=== PATIENT | female | born 1965 | race Caucasian/White ===

== ENCOUNTER 2018-01-06 14:19 | Outpatient (CLI) | payer OTHER ==
[~2018-01-06 14:19] MED LIST: Gadobenate Dimeglumine 529 MG/1 ML (20ML VIAL) ONE
--- NOTE | 2018-01-06 16:02 | MRI ---
MRI BRAIN WITH AND WITHOUT CONTRAST: Date: 01/06/18 INDICATION: Multiple sclerosis. No prior comparison. FINDINGS: There is multifocal abnormal white matter signal alteration which is primarily centered with a callos al/pericallosal and periventricular distribution. There is no territorial infarction, mass effect, or midline shift. Ventricular system is normal in size. No pathologic enhancing intra-axial lesions are present. There is extra-axial rounded enhancement, just anterior to the corpus callosum, measuring a pproximately 1.0 cm. Finding is located at midline, demonstrates flow-related signal by T2 imaging an d favors an aneurysm arising from the anterior cerebral circulation. There is a T2 hyperintensity at the posterior aspect of the right lentiform nucleus which may be related to a dilated perivascular sp suma. There is a focal, oval-shaped signal abnormality of the right cerebellar hemisphere, likely a de myelinating plaque in light of the concomitant findings. 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 IMPRESSION: 1. MR findings indicative of a prominent degree of demyelination related to patient's history of mul tiple sclerosis. There is no enhancement to confirm active demyelination. 2. 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 Dedic ated MRA tribe of [place] or CTA tribe of [place] exam is recommended to further assess. POS: [facility]
== END 2018-01-06 14:20 | disposition home or self-care (01) ==
LOC: BICMRI 14:19
PROVIDERS: ATTEND Psychiatry & Neurology Neurology
DX: G35 Multiple sclerosis (principal)
CPT/HCPCS: 70553; A9579

== ENCOUNTER 2018-03-02 08:49 | Outpatient (CLI) | payer OTHER ==
--- NOTE | 2018-03-02 11:15 | CT ---
CT ANGIOGRAM HEAD: HISTORY: Evaluate for possible anterior cerebral artery aneurysm. COMPARISON: None. CORRELATION: Brain MRI from 01/06/2018. FINDINGS: Noncontrast head CT demonstrates hyperdensity in the expected region of the previously suggested aneu rysm. No parenchymal hemorrhage. No extraaxial hematoma. No midline shift. Basilar cisterns are p atent. Brain volume is age appropriate. No evidence of hydrocephalus. Minimal chronic small vessel ischemic change of the white matter. Stable choroid plexus cyst in the right cerebrum. The calvari um is intact. Adequate aeration of the sinuses and mastoid air cells. On the post contrast images, there is no pathologic enhancement of the brain parenchyma. On CT angiogram, there is symmetric enhancement of the luminal diameter of the distal cervical and in tracranial internal carotid arteries. Anterior circulation shows symmetric enhancement and luminal diameter of the M1 segments. Both A1 se gments are patent. The left A1 segment is larger than the contralateral side. The diminutive right A1 segment is presumed to be due to a congenital variant. There is a solitary A2 segment (azygous va riant). This solitary A2 segment corresponds to the colossal marginal artery. At the mid to distal portion of this artery, there is evidence of a bifurcation, with two separate arteries. At the level of the bifurcation, there is a saccular aneurysm, measuring 7 cm anteroposterior x 1 cm mediolateral x 0.9 cm craniocaudal. There appears to be a single supplying vessel (the colossal marginal artery) . Additional aneurysms in the anterior circulation are not appreciated. The proximal MCA branches a re symmetric. Posterior circulation shows both intracranial vertebral arteries are patent and symmetric. Both PICA artery origins are unremarkable. Both vertebral arteries supply a normal caliber basilar artery. T he left and right P1 segments have symmetric enhancement and luminal diameter. 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 Beyond this aneurysm, there appear to be two separate arteries that bifurcate and supply the distal aspect of the colossal marginal artery. Conventional angiography may be beneficial, to consider possible treatment of the aneurysm. POS: [facility]
== END 2018-03-02 08:50 | disposition home or self-care (01) ==
LOC: TBSIIMAG 08:49
PROVIDERS: ATTEND Neurological Surgery
DX: I67.1 Cerebral aneurysm, nonruptured (principal)
CPT/HCPCS: 70496

== ENCOUNTER → 2018-04-19 | Day surgery (SDC) | payer OTHER ==
[2018-04-17 11:32] VITALS: BMI 29.6
[~2018-04-19] MED LIST changes: -Gadobenate Dimeglumine 529 MG/1 ML (20ML VIAL) ONE; +Heparin 10,000 UNITS/1 ML VIAL ONE; +Iopamidol 370 76% 100 ML VIAL ONE
--- NOTE | 2018-04-19 09:54 | CCL ---
RADIOLOGY PROCEDURE NOTE: Date: 04/19/18 SURGEON: Karlos Jarvis M.D. ROUGHER OPERATOR: None. INDICATION: Incidentally discovered aneurysm. DIAGNOSIS: Anterior communicating artery aneurysm. PROCEDURE: Diagnostic cerebral angiography. ANESTHESIA: Local. TECHNIQUE: The patient was brought into the angiogram suite and placed on the table in the supine position. Both groins were prepped and draped in the usual sterile fashion. Following an appropriate operative paus e, 1% lidocaine was injected into the right groin area for the purposes of local anesthesia. A 5 Fren ch Micropuncture set was then used to gain access to the right common femoral artery. After placing a 5 Croatian sheath, a diagnostic catheter was placed in the aortic arch, where the left internal caroti d artery was selectively catheterized. Several AP and lateral angiograms were performed. Catheter was then removed. Hemostasis was maintained throughout. Wound was then closed with hemostasis. There wer e no known procedural complications. FINDINGS/IMPRESSION: Angiography reveals the presence of anterior communicating artery aneurysm that measures approximatel y 10.0 x 7.0 x 7.0 mm in dimension. There is a single A1 segment emanating from the left side. There appears to be an atretic A1 segment from the right. Both A2 segments emanate from the base of the ane urysm. Effectively, it is a broad based aneurysm which I do not believe is amenable to safe coil embo lization. Plan will be to follow-up in the outpatient clinic for further discussion regarding treatme nt options.
== END ==
LOC: CCL 06:10
PROVIDERS: ATTEND Neurological Surgery
PROC: 03H Upper Arteries, Insertion (ICD-10-PCS; principal; 2018-04-19)
DX: I67.1 Cerebral aneurysm, nonruptured (principal); Z79.899 Other long term (current) drug therapy; Z88.0 Allergy status to penicillin
CPT/HCPCS: 36224; J1644; Q9967

== ENCOUNTER 2018-09-26 06:02 | Inpatient (IN) | payer OTHER ==
--- NOTE | 2018-09-22 08:31 | HP ---
HISTORY OF PRESENT ILLNESS: Ms. Lisa was referred by Dr. Jarvis for unruptured aneurysm. She is a 53-year-old female and has had a diagnosis of multiple sclerosis since age 25. She is not currently on any biologicals, but does take a month of prednisone. She has not had a recent flare. During a screening MRI, was seen in the interhemispheric fissure that looks like an aneurysm, indeed conventional angiograph revealed a single A2 segment and A2-3 bifurcation 1 cm plus aneurysm and a dominant left A1. She had no personal nor family history of aneurysmal SAH. REVIEW OF SYSTEMS: A 10-point review of systems have been completed and is negative other than stated in the above HPI. PAST MEDICAL HISTORY: Multiple sclerosis, chronic back pain, hypothyroid, hypertension, and elevated cholesterol. ALLERGIES: PENICILLIN. PAST SURGICAL HISTORY: Hysterectomy, one ovary remaining, jaw surgery, and multiple tubal ligation. FAMILY HISTORY: Father is alive. Mother has . Siblings are alive, one healthy daughter. SOCIAL HISTORY: The patient is a former smoker, quit in 1983. Denies alcohol or drug use. She is abstinent now, has been previously sexually active. Living situation was with near aging parents to help care for them. The patient is 100% disabled through the [facility]. She is , has one child and drinks caffeine daily. PHYSICAL EXAMINATION: CONSTITUTIONAL: The patient is alert and oriented. Normal attention. HEENT: Head is normocephalic and atraumatic. Pupils are equal, round, and reactive to light. Extraocular movements are intact. Hearing is intact. NEUROLOGIC: Gait and station are normal. Motor exam, very mild left hemibody UMN findings, increased reflexes worse on the right, UMN weakness. Sensory exam, no hemianesthesia. Reflex exam, brisker on the left. IMAGING: Angiogram A2-A3 aneurysm 1 cm plus. Single A2 seen mostly by left A1. MRI on right hemisphere including round encephalomalacia and right deep basal ganglia area. ASSESSMENT AND PLAN: Aneurysm, unruptured. Dr. Elizondo has offered to do a bifrontal craniotomy with a right-sided approach with clipping of the aneurysm. The patient states she understands the risks and is willing to proceed with surgery. Job ID: [id number]
[2018-09-26] MEDS ORDERED: Lidocaine 0.5%/Epinephrine 1:200,000 50 ml Vial ONE (06:17)
[2018-09-26] MEDS ORDERED: Sodium Chloride 0.9% 40 ML ONE (06:17)
[2018-09-26] MEDS ORDERED: Bacitracin Zinc Ointment 30 gm TUBE ONE (06:17)
[2018-09-26] MEDS ORDERED: Thrombin 5000 UNITS/5 ML VIAL ONE ×2 (06:17→15:20)
[2018-09-26] MEDS ORDERED: Indocyanine Green 25 MG/10 ML VIAL ONE ×2 (06:21→15:20)
[2018-09-26] MEDS ORDERED: Levofloxacin 500 mg/D5W 100 ml Premix Bag ONE (06:26)
[2018-09-26] MEDS ORDERED: Clindamycin/D5W 900 mg/50 ml Premix Bag ONE (06:26)
[2018-09-26] MEDS ORDERED: Albumin 5% 500 ML ONE (06:43)
[2018-09-26] MEDS ORDERED: levETIRAcetam 500 MG/100 ML PREMIX BAG ONE (06:43)
[2018-09-26] MEDS ORDERED: levETIRAcetam 1000 MG/100 ML PREMIX BAG ONE (06:43)
[2018-09-26] MEDS ORDERED: Propofol 1,000 MG/100 ML VIAL IV ONE ×3 (06:43→11:47)
[2018-09-26] MEDS ORDERED: Adenosine 6 MG/2 ML VIAL ONE ×2 (06:44)
[2018-09-26 06:45] LABS: #Eosinphils 0.1 thou/uL (0.0-0.7); #Lymphocytes 1.9 thou/uL (1.20-3.40); #Monocytes 0.4 thou/uL (0.11-0.59); %Basophils 0.1 % (0.0-1.0); %Eosinophils 2.4 % (0.0-10.0); %Lymphocytes 34.7 % (21.0-51.0); %Monocytes 7.6 % (0.0-10.0); %Neutrophils 55.2 % (42.0-75.0); Hemoglobin 12.8 g/dL (12.0-16.0); Mean Corpuscular HGB CONC 32.3 g/dL (32.0-36.0); Mean Corpuscular Hemoglobin 28.4 pg (27.0-31.0); Mean Corpuscular Volume 87.7 fL (78.0-98.0); Mean Platelet Volume 7.8 fL (7.4-10.4); Platelet Count 214 thou/uL (130-400); RBC Distribution Width 13.1 % (11.5-14.5); Red Blood Cell (RBC) Count 4.52 mill/uL (4.20-5.40); White Blood Cell (WBC) Count 5.4 thou/uL (4.8-10.8)
[2018-09-26 06:47] LABS: PTT 37.5 SEC (22.9-36.1); Prothrombin Time 12.7 SEC (12.0-14.7)
[2018-09-26] MEDS ORDERED: SUGAMMADEX SODIUM 500 MG/5 ML VIAL ONE (06:55)
[2018-09-26] MEDS ORDERED: Midazolam HCl 2 mg/2 ml Vial ONE (06:57)
[2018-09-26 07:03] LABS: Anion Gap 12 mmol/L (10-20); BUN (Urea Nitrogen) 19 mg/dL (9.8-20.1); Calc. Creatinine Clearance 100 mL/min (70-130); Calcium 9.9 mg/dL (7.8-10.44); Carbon Dioxide 29 mmol/L (22-29); Chloride 101 mmol/L (98-107); Estimated GFR-MDRD 66; Glucose 92 mg/dL (70-105); Potassium 4.2 mmol/L (3.5-5.1); Sodium 138 mmol/L (136-145)
[2018-09-26] MEDS ORDERED: Fentanyl 100 MCG/2 ML VIAL ONE ×3 (07:06→14:03)
[2018-09-26] MEDS ORDERED: Papaverine 60 MG/2 ML VIAL ONE ×2 (09:03→15:20)
[2018-09-26] MEDS ORDERED: Heparin 10,000 UNITS/1 ML VIAL ONE (09:03)
[2018-09-26] MEDS ORDERED: Nitroglycerin 50 MG/250 ML BOT 250 ML ONE (11:47)
[2018-09-26] MEDS ORDERED: Phenylephrine HCL 10 MG/ML VIAL ONE (12:06)
[2018-09-26] MEDS ORDERED: PROPOFOL 20 ML ONE ×2 (12:22→14:19)
[2018-09-26] MEDS ORDERED: PACU-Morphine 4MG/ML VIAL SLOW IVP PRN (14:01)
[2018-09-26] MEDS ORDERED: Promethazine HCl 25 MG/ML VIAL SLOW IVP PRN (14:01)
[2018-09-26] MEDS ORDERED: Ondansetron HCl/PF 4 MG/2 ML Vial IVP PRN (14:01)
[2018-09-26] MEDS ORDERED: Promethazine HCl 25 MG/ML VIAL IM PRN ×2 (14:01→15:07)
[2018-09-26] MEDS ORDERED: HYDROmorphone 2 MG/ML VIAL SLOW IVP PRN (14:01)
[2018-09-26] MEDS ORDERED: Morphine Sulfate 2 MG/ML SYRINGE SLOW IVP PRN (14:01)
[2018-09-26] MEDS ORDERED: Clindamycin/D5W 900 MG in Premix Bag 1 BAG IVPB SCH (15:00)
[2018-09-26] MEDS ORDERED: Docusate 100 MG CAP PO PRN (15:07)
[2018-09-26] MEDS ORDERED: Acetaminophen 325 MG TAB PO PRN (15:07)
[2018-09-26] MEDS ORDERED: Acetaminophen/Codeine 30-300mg Tablet PO PRN ×2 (15:07→15:18)
[2018-09-26] MEDS ORDERED: Promethazine 25 MG TAB PO PRN (15:07)
[2018-09-26] MEDS ORDERED: Mag-Al 1200 mg/1200 mg/30 ML UDCUP PO PRN (15:07)
[2018-09-26] MEDS ORDERED: Labetalol HCl 100 MG/20 ML VIAL SLOW IVP PRN (15:07)
[2018-09-26] MEDS ORDERED: diphenhydrAMINE 50 MG CAP PO PRN (15:07)
[2018-09-26] MEDS ORDERED: diphenhydrAMINE 50 MG/ML VIAL IVP PRN (15:07)
[2018-09-26] MEDS ORDERED: Ondansetron PF 4 MG/2 ML Vial IVP PRN (15:07)
[2018-09-26] MEDS ORDERED: Esmolol 100 MG/10 ML VIAL ONE (15:20)
[2018-09-26] MEDS ORDERED: Rocuronium Bromide 10 MG/ML (10ML VIAL) ONE (15:20)
[2018-09-26] MEDS ORDERED: Ondansetron PF 4 MG/2 ML Vial ONE (15:20)
[2018-09-26] MEDS ORDERED: Vecuronium 10 MG VIAL ONE (15:20)
[2018-09-26] MEDS ORDERED: PHENYLEPHRINE-NS 100 MCG/ML 10 ML SYRINGE ONE (15:20)
[2018-09-26] MEDS ORDERED: Metoprolol Tartrate 5 MG/5 ML VIAL ONE ×2 (15:20→15:36)
[2018-09-26] MEDS ORDERED: Lidocaine 1% PF 5 ML VIAL ONE (15:20)
[2018-09-26] MEDS ORDERED: PROPOFOL 200 MG/20 ML VIAL ONE (15:20)
[2018-09-26] MEDS ORDERED: Dexamethasone 20 MG/5 ML VIAL ONE (15:20)
[2018-09-26 16:58] VITALS: BMI 30.6
[2018-09-26] MEDS: Sodium Chloride 0.9% 1,000 ML IV SCH (17:13)
[2018-09-26] MEDS: hydrALAZINE 20 MG/ML VIAL SLOW IVP PRN ×2 (17:26→18:48)
[2018-09-26] MEDS: Morphine 2 MG/ML SYRINGE SLOW IVP PRN ×2 (18:27→21:26)
[2018-09-26] MEDS ORDERED: niCARdipine 25 MG in Sodium Chloride 0.9% 250 ML 240 ML IVPB SCH (18:30)
--- NOTE | 2018-09-26 21:17 | OP ---
DATE OF PROCEDURE: 09/26/2018 OUTDOOR EMERGENCY CARE TECHNICIAN: Maryam Ramirez PA-C PREOPERATIVE INDICATION: Prevent subarachnoid hemorrhage, prevent neurological deterioration. PREOPERATIVE DIAGNOSIS: Unruptured distal anterior cerebral artery aneurysm, large, unable to be coiled. 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 OPERATIVE PROCEDURE: With a bifrontal craniotomy, interhemispheric approach to distal anterior cerebral artery aneurysm, clipping of the aneurysm with three clips, complicated aneurysm approach and clipping, operative microscope. PREOPERATIVE MEDICATIONS: Clindamycin 900 mg IV and Levaquin 500 mg IV. DRAIN NUMBER: 0. DRAIN TYPE: None. DESCRIPTION OF PROCEDURE: The patient was brought to the operating room. General endotracheal anesthesia was induced. The patient was positioned supine with the head directly up toward the ceiling and immobilized in the Lieberman pin and supervisor tunnel heading. We planned a curvilinear incision starting at the anterior to the tragus on the right and following the hairline to the middle and past the midline towards the left frontal bone. We did not extend all the way to the left ear. Under a planned incision, we infused local anesthetic. The scalp was then sterilely prepped and draped. We opened the incision with a 10 blade knife and controlled bleeding with bipolar and monopolar cautery. We opened the skin flap, but our periosteal flap was taken farther back than our incision and folded forward under a fishhook with her skin. The temporalis muscle was opened to allow placement of the nando hole at the frontal keyhole and along the posterior aspect of the superior temporal line. We irrigated with bacitracin irrigation. We brought a high-speed drill into the field. We placed a nando hole in the midline above the orbital rim and one at the hairline, and we placed a nando hole in the right frontal keyhole in the superior temporal line on the right side. The dura was stripped from the undersurface of the bone with a Uledi 3 dissector. The dura was markedly adherent in this patient for some reason. We fashioned a large right frontal and small left frontal craniotomy as one piece. With a side-cutting bit and a footplate, we opened this craniotomy flap. We then removed the flap carefully stripping dura from the underneath surface. There were some tears of the dura in removing the bone flap, but the brain was uninjured. We quickly identified a very large draining vein from the right frontal lobe into the dura and down the superior sagittal sinus. We skeletonized this vein by leaving the dura over it attached, and we placed a heparin-soaked Gelfoam over the vein so we would not clot off during the case. Unfortunately, this vein was limited in our interhemispheric fissure approach just where we wanted to approach aneurysm, so we had approach posteriorly to it. The operative microscope was brought into the field. Under microscopic magnification and using microsurgical techniques, we carefully developed a plane in the interhemispheric fissure. The arachnoid was freed between the frontal lobes under the falx. We continued our dissection deeper to identify the A3 pericallosal arteries. We followed these anteriorly to two separate frontopolar branches and then followed these A3 segments even more proximally all the way down to the corpus, to the genu of the corpus callosum. This dissection was tedious as the frontal lobes were more adherent than normal anteriorly where our dissection carried us to find the aneurysm. Nonetheless, we arrived at the genu of the corpus callosum. We identified the posterior aspect of the A2 segment. The patient had an azygos A2 as there was not a right and a left A2 segment but only one large one. We identified the posterior margin of that artery. We identified both pericallosal branches pointing laterally from the tip of that artery and an aneurysm pointing anteriorly. A preoperative CT angiogram suggested a small artery coming from the base of the aneurysm toward the right frontal lobe and curving superiorly over the aneurysm. We identified this, and it actually was coming out of the proximal portion of the pericallosal but not the aneurysm itself. This allowed us to be a bit more aggressive with our clipping of the aneurysm, thankfully. The aneurysm was large, was under pressure, and had calcification in it. We dissected the dome of the aneurysm carefully, and when we could identify the feeding artery, both daughter arteries, and this small vessel on the right side, there we administered a large bolus of propofol with the help of Anesthesia. After the bolus, it circulated for 90 seconds. We placed a temporary clip across the azygos A2 artery. This softened the aneurysm considerably. We brought a large straight clip into the field and placed it across the neck of the aneurysm. We carefully inspected both the left and the right pericallosal arteries as well as small branch from the proximal right pericallosal artery. There was some kinking of the left A3 artery due to aggressive clipping, and therefore, the clip was backed off the junction a bit leaving a small bleb pointing directly superiorly. This was not thin-walled, but it could not be included in the aneurysm clip and still preserve the left A3 segment. Multiple sizes and shapes of the aneurysm clips were attempted, and the best clipping was with a long straight clip. After the temporary clip was removed from the azygos A2, we reestablished flow. Using IC-green, we examined the arteries under fluorescence. We the dome of the aneurysm still filled, and indeed on inspection, the blade of the aneurysm clip although quite long reached only just to the distal aspect of the aneurysm deep. We carefully reapplied the temporary clip to the A2 segment and repositioned our clip and once again checked our clipping with IC-green. There was a slower filling of the aneurysm dome. This time, the aneurysm clip blades were definitively across the entire aneurysm. Proximally, a small amount of IC-green filled the most superior portion of the aneurysm where the axilla of the clip was. We elected to bolster this clip with 2 more clips, each time ensuring that the distal clip blades did not impinge any artery looping over the anterior dome of the aneurysm. Once 3 clips were applied, there was no longer any IC-green filling. We identified both A3 segments as well as the small artery out of the proximal right A3, and all these filled avidly with IC-green, and the aneurysm no longer did. With the aneurysm secured, we irrigated copiously with bacitracin irrigation. We carefully removed all Gelfoam and Surgicel used during our approach as well as all our cottonoids. We irrigated once again and harvested a pericranial graft to close the dura in an interrupted fashion. We reapproximated the bone with plates and screws. The operative microscope was taken out of the field. We closed the skin incision in anatomical layers, and we applied a sterile dressing. This was a clean case with no contamination. Job ID: [id number]
[2018-09-26] MEDS: Gabapentin 300 MG CAP PO SCH (21:26)
[2018-09-26] MEDS: Atorvastatin Calcium 20 MG TAB PO SCH (21:26)
[2018-09-26] MEDS: Famotidine 20 MG TAB PO SCH (21:26)
[2018-09-26] MEDS: Oxybutynin 5 MG TAB PO SCH (21:28)
[2018-09-26] MEDS: Acetaminophen/Codeine 30-300mg Tablet PO PRN (23:57)
[2018-09-27] MEDS: Clindamycin/D5W 900 MG in Premix Bag 1 BAG IVPB SCH ×2 (01:46→09:45)
[2018-09-27] MEDS: Sodium Chloride 0.9% 1,000 ML IV SCH ×2 (06:27→22:06)
--- NOTE | 2018-09-27 06:46 | PRG ---
DATE OF SERVICE: 09/27/2018 Ms. Lisa is 1 day out from an interhemispheric approach to the distal CHRYSTAL aneurysm for clipping. Aneurysm was large and required 3 clips, but is now isolated from the circulation. Overnight, Ms. Lisa has had headache, but she is gradually waking up from anesthesia and feels relatively well. She is conversing with the nurse as I entered the room, she is moving all 4 extremities and has no complaints. Plan for Ms. Lisa today is to stay in the ICU till after breakfast. If she is feeling well, she can stand with assistance. She can begin ambulation with physical therapy, but needs assistance first few times if she is out of bed until she proves she is safe. Between breakfast and lunch, we can transition to floor care. Anticipated another 2 nights in the hospital, working with physical therapy before going home. Job ID: [id number]
[2018-09-27] MEDS: Acetaminophen/Codeine 30-300mg Tablet PO PRN ×2 (08:39→12:35)
[2018-09-27] MEDS: Gabapentin 300 MG CAP PO SCH ×2 (08:39→22:04)
[2018-09-27] MEDS: DULoxetine 60 MG CAP PO SCH (08:40)
[2018-09-27] MEDS: Famotidine 20 MG TAB PO SCH ×2 (08:40→22:04)
[2018-09-27] MEDS ORDERED: Levothyroxine Sodium 75 MCG TAB PO SCH (09:00)
[2018-09-27] MEDS: Oxybutynin 5 MG TAB PO SCH ×2 (09:43→22:04)
[2018-09-27] MEDS: Modafinil 100 MG TAB PO SCH (09:43)
[2018-09-27] MEDS: Lisinopril 10 MG TAB PO SCH (11:25)
--- NOTE | 2018-09-27 16:52 | EKG ---
Test Reason : PREOP Blood Pressure : / mmHG Vent. Rate : 066 BPM Atrial Rate : 066 BPM P-R Int : 168 ms QRS Dur : 090 ms QT Int : 436 ms P-R-T Axes : 061 082 051 degrees QTc Int : 457 ms Normal sinus rhythm Normal ECG No previous ECGs available Confirmed by NEGAR JARRELL ([id number]) on 09/27/2018 4:52:00 PM Referred By: JOHANA Confirmed By:NEGAR JARRELL
[2018-09-27] MEDS ORDERED: Clindamycin/D5W 900 MG in Premix Bag 1 BAG IVPB SCH (17:00)
[2018-09-27] MEDS: Atorvastatin Calcium 20 MG TAB PO SCH (22:04)
[2018-09-28] MEDS: Levothyroxine Sodium 75 MCG TAB PO SCH (05:41)
--- NOTE | 2018-09-28 07:07 | PRG ---
DATE OF SERVICE: 09/28/2018 Ms. Lisa is 2 days out from left interhemispheric approach for distal anterior cerebral artery aneurysm clipping. She is relatively well in the ICU and was transferred to the floor yesterday. Her vital signs are stable overnight. Ms. Lisa is awake already as I entered the room this morning. She converses. She moves all her extremities and follows commands well. Her affect is a bit flatter than I remember before surgery. Nonetheless, she communicates well and she tells me she got out of bed and walked with physical therapy. I would like to watch Ms. Lisa at least one more day. I will have her walk in the halls with Physical Therapy and Nursing. If she is safe for all her activities of daily living, we can make arrangements for discharge. I would like to make sure that she is making good sound judgment calls and that her postoperative course at home will be safe. I am going to leave the dressing on until tomorrow. Job ID: [id number]
[2018-09-28] MEDS: Morphine 2 MG/ML SYRINGE SLOW IVP PRN (08:23)
[2018-09-28] MEDS: Famotidine 20 MG TAB PO SCH ×2 (09:27→21:04)
[2018-09-28] MEDS: Lisinopril 10 MG TAB PO SCH (09:27)
[2018-09-28] MEDS: DULoxetine 60 MG CAP PO SCH (09:27)
[2018-09-28] MEDS: Gabapentin 300 MG CAP PO SCH ×2 (09:27→21:04)
[2018-09-28] MEDS: Oxybutynin 5 MG TAB PO SCH ×2 (09:27→21:04)
[2018-09-28] MEDS: Sodium Chloride 0.9% 1,000 ML IV SCH ×2 (09:39→21:05)
[2018-09-28] MEDS: hydrALAZINE 20 MG/ML VIAL SLOW IVP PRN (11:33)
[2018-09-28] MEDS: Acetaminophen/Codeine 30-300mg Tablet PO PRN ×2 (11:34→21:02)
[2018-09-28] MEDS: Modafinil 100 MG TAB PO SCH (11:45)
[2018-09-28] MEDS: Morphine 4 MG/ML VIAL SLOW IVP PRN ×2 (13:55→18:47)
[2018-09-28] MEDS: Atorvastatin Calcium 20 MG TAB PO SCH (21:04)
[2018-09-29] MEDS: hydrALAZINE 20 MG/ML VIAL SLOW IVP PRN (00:58)
[2018-09-29] MEDS: Morphine 4 MG/ML VIAL SLOW IVP PRN (01:02)
[2018-09-29] MEDS: Levothyroxine Sodium 75 MCG TAB PO SCH (05:48)
[2018-09-29] MEDS ORDERED: traMADol HCl 50 MG TAB PO PRN (06:42)
[2018-09-29] MEDS: traMADol HCl 50 MG TAB PO PRN ×2 (06:49→15:55)
--- NOTE | 2018-09-29 07:34 | PRG ---
DATE OF SERVICE: 09/29/2018 I saw Ms. Lisa in her hospital room this morning. She is up watching television this morning. She asked me to remove her head dressing and I did so. The incision looks good. It is well approximated. There is no active drainage. Overnight, Ms. Lisa requested IV medication for headache. Otherwise, feels as though she can care for herself at home. She is a bit unsteady, needs help with walking. With a walker, I believe she would be safe for activities of daily living. We will confirm this with Therapy and Nursing staff this morning and if she has help at home, I think she can be discharged safely. Hopefully, we will get her on a home regimen of analgesics that takes the edge off her head pain. I do not think there is a medicine that will make it completely go away, but slowly over time, it will improve significantly. We will follow up in 2 weeks in the office. Job ID: [id number]
[2018-09-29] MEDS: Famotidine 20 MG TAB PO SCH ×2 (09:34→21:06)
[2018-09-29] MEDS: DULoxetine 60 MG CAP PO SCH (09:34)
[2018-09-29] MEDS: Lisinopril 10 MG TAB PO SCH (09:34)
[2018-09-29] MEDS: Gabapentin 300 MG CAP PO SCH ×2 (09:34→21:06)
[2018-09-29] MEDS: Oxybutynin 5 MG TAB PO SCH ×2 (09:34→21:06)
[2018-09-29] MEDS: Modafinil 100 MG TAB PO SCH (10:12)
[2018-09-29] MEDS: Sodium Chloride 0.9% 1,000 ML IV SCH ×2 (10:56→23:42)
[2018-09-29] MEDS: Acetaminophen/Codeine 30-300mg Tablet PO PRN (21:06)
[2018-09-29] MEDS: Atorvastatin Calcium 20 MG TAB PO SCH (21:06)
[2018-09-30] MEDS: Acetaminophen/Codeine 30-300mg Tablet PO PRN ×3 (04:09→19:36)
[2018-09-30] MEDS: Levothyroxine Sodium 75 MCG TAB PO SCH (05:33)
[2018-09-30] MEDS: Famotidine 20 MG TAB PO SCH ×2 (09:06→19:35)
[2018-09-30] MEDS: Oxybutynin 5 MG TAB PO SCH ×2 (09:06→19:35)
[2018-09-30] MEDS: DULoxetine 60 MG CAP PO SCH (09:06)
[2018-09-30] MEDS: Gabapentin 300 MG CAP PO SCH ×2 (09:06→19:35)
[2018-09-30] MEDS: Modafinil 100 MG TAB PO SCH (09:06)
[2018-09-30] MEDS: Lisinopril 10 MG TAB PO SCH (09:08)
--- NOTE | 2018-09-30 10:08 | PRG ---
DATE OF SERVICE: 09/30/2018 SUBJECTIVE: The patient is a 53-year-old female, who is postop day #4, status post distal CHRYSTAL aneurysmal clipping. Following the surgery, she has since been transitioned to the Med/Surg floor. She is complaining of intermittent headaches, but reports it is well controlled with her Tylenol No. 3. She has been up ambulating with her walker in the department. She is tolerating a regular diet and voiding appropriately. She has not had any incisional issues. She has had some transient confusion, but this seemed to clear shortly. OBJECTIVE: The patient is awake, alert. She is oriented x3. Her incision is dry and intact. She has free active range of motion of all extremities. No focal motor weakness. Pupils are equal and reactive. ASSESSMENT AND PLAN: Due to her home situation, the patient will plan to go to inpatient rehab upon discharge. We are waiting on insurance authorization for this. She is otherwise doing well and we will continue to mobilize appropriately during her stay. Job ID: [id number]
--- NOTE | 2018-09-30 13:07 | PRG ---
DATE OF SERVICE: 09/30/2018 The patient was seen and examined, I agree with Ida Zabala's evaluation on 09/30/2018. The patient is doing quite well. She is up in the chair, eating breakfast, nonfocal, verbally interactive with a good sense of humor. She does not feel capable of discharge to home and we have initiated rehab planning. I had a lengthy discussion with her and her daughter and all questions were answered. Job ID: [id number]
[2018-09-30] MEDS: Sodium Chloride 0.9% 1,000 ML IV SCH (14:44)
[2018-09-30] MEDS: Atorvastatin Calcium 20 MG TAB PO SCH (19:36)
[2018-09-30] MEDS: traMADol HCl 50 MG TAB PO PRN (23:04)
[2018-10-01] MEDS: Sodium Chloride 0.9% 1,000 ML IV SCH ×2 (03:44→14:50)
[2018-10-01] MEDS: Levothyroxine Sodium 75 MCG TAB PO SCH (06:11)
[2018-10-01] MEDS: Acetaminophen/Codeine 30-300mg Tablet PO PRN ×2 (06:12→17:51)
[2018-10-01] MEDS: Gabapentin 300 MG CAP PO SCH ×2 (09:14→20:26)
[2018-10-01] MEDS: DULoxetine 60 MG CAP PO SCH (09:14)
[2018-10-01] MEDS: Famotidine 20 MG TAB PO SCH ×2 (09:14→20:25)
[2018-10-01] MEDS: Oxybutynin 5 MG TAB PO SCH ×2 (09:15→20:25)
[2018-10-01] MEDS: Lisinopril 10 MG TAB PO SCH (09:15)
--- NOTE | 2018-10-01 09:43 | PRG ---
DATE OF SERVICE: 10/01/2018 The patient is a 53-year-old female, status post distal CHRYSTAL aneurysmal clipping. She has been stable on the floor. Her headaches are improving in time. She is awake, alert, and oriented x3. She has free active range of motion of all extremities. No focal motor weakness. She has some transient confusion, but this does not seems also to be improving with time. Plans are for inpatient rehabilitation. We feel that she is ready for at any point in the near future. Job ID: [id number]
[2018-10-01] MEDS: Modafinil 100 MG TAB PO SCH (11:47)
[2018-10-01] MEDS: traMADol HCl 50 MG TAB PO PRN (20:25)
[2018-10-01] MEDS: Atorvastatin Calcium 20 MG TAB PO SCH (20:25)
[2018-10-02] MEDS: Acetaminophen/Codeine 30-300mg Tablet PO PRN ×4 (01:13→23:33)
[2018-10-02] MEDS: Sodium Chloride 0.9% 1,000 ML IV SCH ×2 (05:38→20:25)
[2018-10-02] MEDS: Levothyroxine Sodium 75 MCG TAB PO SCH (05:39)
[2018-10-02] MEDS: hydrALAZINE 20 MG/ML VIAL SLOW IVP PRN ×2 (06:28→08:17)
--- NOTE | 2018-10-02 06:49 | PRG ---
DATE OF SERVICE: 10/02/2018 Ms. Lisa is almost 1 week out from interhemispheric approach for distal CHRYSTAL aneurysm clipping. She is doing relatively well. Her daughter could not care for at home and the patient and her daughter agreed to look into inpatient rehabilitation. Arrangements are being made. Ms. Lisa is awake this morning. She is watching television. She did tell me that she was up and walking with her walker around the halls over the weekend. I do not find any new deficits on Ms. Lisa's examination. Ms. Lisa is ready for discharge any time. She can shower. Incision should be patted dry with a towel gently after her shower. Job ID: [id number]
[2018-10-02] MEDS: DULoxetine 60 MG CAP PO SCH (08:15)
[2018-10-02] MEDS: Famotidine 20 MG TAB PO SCH ×2 (08:16→20:25)
[2018-10-02] MEDS: Oxybutynin 5 MG TAB PO SCH ×2 (08:16→20:25)
[2018-10-02] MEDS: Lisinopril 10 MG TAB PO SCH (08:16)
[2018-10-02] MEDS: Gabapentin 300 MG CAP PO SCH ×2 (08:17→20:25)
[2018-10-02] MEDS: Modafinil 100 MG TAB PO SCH (09:47)
[2018-10-02] MEDS: Atorvastatin Calcium 20 MG TAB PO SCH (20:25)
[2018-10-03] MEDS: Levothyroxine Sodium 75 MCG TAB PO SCH (05:01)
[2018-10-03] MEDS: Acetaminophen/Codeine 30-300mg Tablet PO PRN ×3 (05:01→17:08)
--- NOTE | 2018-10-03 07:34 | PRG ---
DATE OF SERVICE: 10/03/2018 SUBJECTIVE: Ms. Lisa is a 53-year-old female who is 7 days post out from aneurysm clipping, resting comfortably in hospital bed. She states that her headache is much improved. She has been working with physical therapy using a walker in the hallway. Her daughter has been in town for a few days, but is not able to stay to help care for her. Our plan is rehab once bed is available. No recorded events overnight and when she is ready we can discharge to rehab. Job ID: [id number]
[2018-10-03] MEDS: Lisinopril 10 MG TAB PO SCH (09:34)
[2018-10-03] MEDS: DULoxetine 60 MG CAP PO SCH (09:34)
[2018-10-03] MEDS: Famotidine 20 MG TAB PO SCH ×2 (09:35→20:29)
[2018-10-03] MEDS: Gabapentin 300 MG CAP PO SCH ×2 (09:36→20:29)
[2018-10-03] MEDS: Oxybutynin 5 MG TAB PO SCH ×2 (09:36→20:29)
[2018-10-03] MEDS: Sodium Chloride 0.9% 1,000 ML IV SCH ×2 (09:37→19:34)
[2018-10-03] MEDS: Modafinil 100 MG TAB PO SCH (10:03)
[2018-10-03] MEDS: Atorvastatin Calcium 20 MG TAB PO SCH (20:29)
[2018-10-04] MEDS: Acetaminophen/Codeine 30-300mg Tablet PO PRN ×3 (02:30→20:26)
[2018-10-04] MEDS: Levothyroxine Sodium 75 MCG TAB PO SCH (06:00)
[2018-10-04] MEDS: Oxybutynin 5 MG TAB PO SCH ×2 (09:02→20:21)
[2018-10-04] MEDS: Gabapentin 300 MG CAP PO SCH ×2 (09:02→20:21)
[2018-10-04] MEDS: Famotidine 20 MG TAB PO SCH ×2 (09:02→20:21)
[2018-10-04] MEDS: Lisinopril 10 MG TAB PO SCH (09:02)
[2018-10-04] MEDS: DULoxetine 60 MG CAP PO SCH (09:02)
--- NOTE | 2018-10-04 09:12 | PRG ---
DATE OF SERVICE: 10/04/2018 Ms. Lisa is 8 days out from aneurysm clipping. She is doing well, working with physical therapy, ambulating with a walker. She had no reported events overnight. Per Physical Therapy, she would benefit from rehab as she does not have any help at home, we are pending rehab. Once this is arranged, she can be discharged any time. Job ID: [id number]
[2018-10-04] MEDS: Modafinil 100 MG TAB PO SCH (10:06)
[2018-10-04] MEDS: Sodium Chloride 0.9% 1,000 ML IV SCH ×2 (10:07→23:50)
[2018-10-04] MEDS: Atorvastatin Calcium 20 MG TAB PO SCH (20:21)
[2018-10-05] MEDS: Levothyroxine Sodium 75 MCG TAB PO SCH (05:40)
[2018-10-05] MEDS: Gabapentin 300 MG CAP PO SCH ×2 (08:22→21:14)
[2018-10-05] MEDS: Famotidine 20 MG TAB PO SCH ×2 (08:22→21:14)
[2018-10-05] MEDS: DULoxetine 60 MG CAP PO SCH (08:22)
[2018-10-05] MEDS: Oxybutynin 5 MG TAB PO SCH ×2 (08:22→21:14)
[2018-10-05] MEDS: Lisinopril 10 MG TAB PO SCH (08:22)
[2018-10-05] MEDS: Acetaminophen/Codeine 30-300mg Tablet PO PRN ×3 (08:27→17:52)
[2018-10-05] MEDS: Modafinil 100 MG TAB PO SCH (09:27)
[2018-10-05] MEDS: Sodium Chloride 0.9% 1,000 ML IV SCH (13:03)
--- NOTE | 2018-10-05 17:52 | PRG ---
DATE OF SERVICE: 10/05/2018 Ms. Lisa is now 9 days out from craniotomy for clipping of an aneurysm. I see her this morning in her hospital bed. She is resting comfortably. She is in no visible distress. There were no recorded events overnight. T-max was 98.4, blood pressure was between 110 and 130s. She has been working with therapy. However, they feel as though she is not making safe decisions while ambulating. She lives alone. Rehab is recommended and pending approval. When approval has been received, we can discharge her in any time. Job ID: [id number]
[2018-10-05] MEDS: Atorvastatin Calcium 20 MG TAB PO SCH (21:14)
[2018-10-06] MEDS: Sodium Chloride 0.9% 1,000 ML IV SCH ×2 (02:17→14:08)
[2018-10-06] MEDS: Levothyroxine Sodium 75 MCG TAB PO SCH (05:58)
[2018-10-06] MEDS: Acetaminophen/Codeine 30-300mg Tablet PO PRN (06:01)
[2018-10-06] MEDS: DULoxetine 60 MG CAP PO SCH (09:49)
[2018-10-06] MEDS: Modafinil 100 MG TAB PO SCH (09:50)
[2018-10-06] MEDS: Lisinopril 10 MG TAB PO SCH (09:50)
[2018-10-06] MEDS: Famotidine 20 MG TAB PO SCH (09:50)
[2018-10-06] MEDS: Oxybutynin 5 MG TAB PO SCH (09:50)
[2018-10-06] MEDS: Gabapentin 300 MG CAP PO SCH (09:50)
[2018-10-06 15:50] VITALS: BP 112/67; TEMP 98.2
--- NOTE | 2018-10-06 16:27 | PRG ---
DATE OF SERVICE: 10/06/2018 I saw Ms. Lisa this morning in her hospital bed. She was resting comfortably. She had no complaints this morning. She has been working with Physical Therapy and doing quite well and therapy believes that she is making good progress in the last week. She is pending rehab approval once this is done she can be discharged at any time. Job ID: [id number] MTDD
== END 2018-10-06 16:45 | DRG 27 ==
LOC: SURG A 06:02 → CCU 16:22 → SJJU 09-27 15:40
PROVIDERS: ADMIT Neurological Surgery; ATTEND Neurological Surgery
PROC: 03LG0CZ Occlusion of Intracranial Artery with Extraluminal Device, Open Approach (ICD-10-PCS; principal; 2018-09-26)
DX: I67.1 Cerebral aneurysm, nonruptured (principal); G35 Multiple sclerosis; G89.29 Other chronic pain; E03.9 Hypothyroidism, unspecified; I10 Essential (primary) hypertension; Z98.51 Tubal ligation status; Z90.710 Acquired absence of both cervix and uterus; Z88.0 Allergy status to penicillin; Z87.891 Personal history of nicotine dependence
CPT/HCPCS: 36415; 80048; 85025; 85610; 85730; 86850; 86900; 86901; 93005; 93010; C1713; J0131; J0153; J0360; J1100; J1644; J1953; J1956; J2001; J2250; J2270; J2370; J2405; J2440; J2704; J3010; J3490; J7050; P9045

== ENCOUNTER 2022-08-02 11:43 | Outpatient (CLI) | payer OTHER | END 2022-08-02 11:44 | disposition home or self-care (01) | LOC: SCSMRI 11:43 | PROVIDERS: ATTEND Psychiatry & Neurology Neurology | DX: G35 Multiple sclerosis (principal); M47.812 Spondylosis without myelopathy or radiculopathy, cervical region | CPT/HCPCS: 72156; 82565 ==

== ENCOUNTER 2024-03-16 12:23 | Outpatient (CLI) | payer OTHER | END 2024-03-16 12:24 | disposition home or self-care (01) | LOC: SCSMRI 12:23 | PROVIDERS: ATTEND Family Medicine | DX: G35 Multiple sclerosis (principal); M47.812 Spondylosis without myelopathy or radiculopathy, cervical region; M47.813 Spondylosis without myelopathy or radiculopathy, cervicothoracic region; I67.1 Cerebral aneurysm, nonruptured; R90.82 White matter disease, unspecified | CPT/HCPCS: 70551; 72156; 76376 ==